=== PATIENT | female | born 1990 | race Caucasian/White ===

== ENCOUNTER 2017-12-13 02:28 | Emergency (ER) | payer SELFPAY ==
--- NOTE | 2017-12-13 04:08 | EDM.PDOC ---
ED HPI GENERAL MEDICAL PROBLEM - General Chief Complaint: Lower Extremity Injury/Pain Stated Complaint: LEFT FOOT PAIN Time Seen by Provider: 12/13/17 04:03 - History of Present Illness INITIAL COMMENTS - FREE TEXT/NARRATIVE: HISTORY AND PHYSICAL: History of present illness: Patient 26-year-old female presents with cervical left ankle injury that occurred earlier tonight she denies other trauma or concerns Review of systems: As per history of present illness and below otherwise all systems reviewed and negative. Past medical history: As per history of present illness and as reviewed below otherwise noncontributory. Surgical history: As per history of present illness and as reviewed below otherwise noncontributory. Social history: No reported history of drug or alcohol abuse. Family history: As per history of present illness and as reviewed below otherwise noncontributory. Physical exam: HEENT: Atraumatic, normocephalic, pupils reactive, negative for conjunctival pallor or scleral icterus, mucous membranes moist, throat clear, neck supple, nontender, trachea midline. Lungs: Clear to auscultation, breath sounds equal bilaterally, chest nontender. Heart: S1S2, regular, negative for clicks, rubs, or JVD. Abdomen: Soft, nondistended, nontender. Negative for masses or hepatosplenomegaly. Negative for costovertebral tenderness. Pelvis: Stable nontender. Genitourinary: Deferred. Rectal: Deferred. Extremities: Tenderness is a small swelling noted in the region of the lateral malleolus on the left CMS neurovascular is unremarkable Neuro: Awake, alert, oriented. Cranial nerves II through XII unremarkable. Cerebellum unremarkable. Motor and sensory unremarkable throughout. Exam nonfocal. Diagnostics: X-ray left ankle Therapeutics: Amari wrap Impression: #1 acute left ankle injury Definitive disposition and diagnosis as appropriate pending reevaluation and review of above. L ankle Pain Score (Numeric/FACES): 7 - Related Data Allergies Allergy/AdvReac Type Severity Reaction Status Date / Time No Known Allergies Allergy Verified 12/13/17 02:38 Home Meds: Home Meds . [No Known Home Meds] 12/13/17 [History] Past Medical History - Past Health History Medical/Surgical History: Denies Medical/Surgical History Social & Family History - Tobacco Use Smoking Status *Q: Never Smoker Second Hand Smoke Exposure: No - Caffeine Use Caffeine Use: Reports: Coffee, Energy Drinks, Tea - Recreational Drug Use Recreational Drug Use: Yes Drug Use in Last 12 Months: No Recreational Drug Type: Reports: Marijuana/Hashish Review of Systems - Review of Systems Review Of Systems: ROS reveals no pertinent complaints other than HPI. ED EXAM, GENERAL - Physical Exam Exam: See Below (See dictation) Course - Vital Signs Last Recorded V/S: Last Vital Signs Temp 36.8 C 12/13/17 02:36 Pulse 93 12/13/17 02:36 Resp 12 12/13/17 02:36 BP 131/74 12/13/17 02:36 Pulse Ox 99 12/13/17 02:36 - Orders/Labs/Meds Orders: Active Orders 24 hr Category Date Time Status Ankle Min 3V Lt [CR] Stat Exams 12/13/17 02:42 Taken Foot Comp Min 3V Lt [CR] Stat Exams 12/13/17 02:42 Taken Labs: Laboratory Tests 12/13/17 Range/Units 02:48 Urine HCG, Qual NEGATIVE (NEGATIVE) Departure - Departure Time of Disposition: 04:07 Disposition: Home, Self-Care 01 Condition: Good Clinical Impression: Ankle injury - Discharge Information *PRESCRIPTION DRUG MONITORING PROGRAM REVIEWED*: Not Applicable *COPY OF PRESCRIPTION DRUG MONITORING REPORT IN PATIENT LYLA: Not Applicable Referrals: PCP,None [Primary Care Provider] - Additional Instructions: The following information is given to patients seen in the emergency department who are being discharged to home. This information is to outline your options for follow-up care. We provide all patients seen in our emergency department with a follow-up referral. The need for follow-up, as well as the timing and circumstances, are variable depending upon the specifics of your emergency department visit. If you don't have a primary care physician on staff, we will provide you with a referral. We always advise you to contact your personal physician following an emergency department visit to inform them of the circumstance of the visit and for follow-up with them and/or the need for any referrals to a consulting specialist. The emergency department will also refer you to a specialist when appropriate. This referral assures that you have the opportunity for followup care with a specialist. All of these measure are taken in an effort to provide you with optimal care, which includes your followup. Under all circumstances we always encourage you to contact your private physician who remains a resource for coordinating your care. When calling for followup care, please make the office aware that this follow-up is from your recent emergency room visit. If for any reason you are refused follow-up, please contact the [facility] emergency department at and asked to speak to the emergency department charge nurse. Amari wrap as directed Motrin/Tylenol as directed follow-up primary medical doctor as needed as discussed and return as needed as discussed - My Orders Last 24 Hours: My Active Orders 12/13/17 02:42 Ankle Min 3V Lt [CR] Stat Foot Comp Min 3V Lt [CR] Stat - Assessment/Plan Last 24 Hours: My Active Orders 12/13/17 02:42 Ankle Min 3V Lt [CR] Stat Foot Comp Min 3V Lt [CR] Stat
--- NOTE | 2017-12-14 15:21 | CR ---
EXAM DATE: 12/13/17 PATIENT'S AGE: 26 Patient: CAMERON CARR Facility: [place], [place] Site . Site : 1990 Study: XRay Extremity Left ANKLE [id number] 3:24:57 AM Ordering Physician: Doctor Moore Final Report: Clinical INDICATION: Injury. Pain. FINDINGS: There is soft tissue swelling overlying the lateral malleolus. There is a small bone island within the distal end of the tibia that is of no significance. There is no fracture or dislocation. The ankle mortise is symmetric. IMPRESSION: Soft tissue swelling. Negative for fracture or dislocation. Dictated by Tadeo Camarillo MD @ Dec 13 2017 3:30AM (Electronic Signature) Report Signed by Proxy. DEONTE
--- NOTE | 2017-12-14 15:22 | CR ---
EXAM DATE: 12/13/17 PATIENT'S AGE: 26 Patient: CAMERON CARR Facility: [place], [place] Site . Site : 1990 Study: XRay Extremity Left FOOT [id number] 3:25:39 AM Ordering Physician: Doctor Moore Final Report: Clinical indication : Injury. Pain. FINDINGS: No bone or joint abnormality is identified. There is no fracture or dislocation. Impression: Negative study. Dictated by Tadeo Camarillo MD @ Dec 13 2017 3:30AM (Electronic Signature) Report Signed by Proxy. DEONET
== END 2017-12-13 04:20 | disposition home or self-care (01) ==
LOC: MW.ED 02:28
DX: S99.912A Unspecified injury of left ankle, initial encounter (principal); X50.1XXA Overexertion from prolonged static or awkward postures, initial encounter
CPT/HCPCS: 73610-26-LT; 73610-LT; 73630-26-LT; 73630-LT; 81025; 99283